=== PATIENT | female | born 1995 | race American Indian/Alaskan Native ===

== ENCOUNTER 2018-01-20 11:31 | Emergency (ER) | payer MEDICAID, OTHER ==
--- NOTE | 2018-01-20 12:43 | C.PDOC ---
History Of Present Illness 22 y/o female presents to the ER complaining of left upper and lower back tooth pain which has been present since last night. Patient states that she was working overnight when she started feeling the pain. Patient reports that she took Ibuprofen PO and she used Orajel. Patient denies having fever, chills, and headache. Time Seen by Provider: 01/20/18 11:47 Chief Complaint (Nursing): Dental Pain History Per: Patient History/Exam Limitations: no limitations Onset/Duration Of Symptoms: Days Current Symptoms Are (Timing): Still Present Severity: Moderate Past Medical History Reviewed: Historical Data, Nursing Documentation, Vital Signs Vital Signs: Last Vital Signs Temp 98.4 F 01/20/18 13:21 Pulse 72 01/20/18 13:34 Resp 18 01/20/18 13:34 BP 123/86 01/20/18 13:34 Pulse Ox 100 01/20/18 13:47 - Medical History PMH: HTN, Kidney Stones Surgical History: No Surg Hx Family History: States: No Known Family Hx - Social History Hx Tobacco Use: No Hx Alcohol Use: No Hx Substance Use: No - Immunization History Hx Tetanus Toxoid Vaccination: No Hx Influenza Vaccination: Yes Hx Pneumococcal Vaccination: No Review Of Systems Except As Marked, All Systems Reviewed And Found Negative. Constitutional: Negative for: Fever, Chills ENT: Positive for: Mouth Pain Neurological: Negative for: Headache Physical Exam - Physical Exam Appears: Non-toxic, No Acute Distress Skin: Normal Color, Warm Head: Atraumatic, Normacephalic Eye(s): bilateral: Normal Inspection Nose: Normal Oral Mucosa: Moist Teeth: Normal Dentition, No Caries Gingiva: Normal Appearing, No Swelling, No Abscess Neck: Supple Chest: Symmetrical Neurological/Psych: Oriented x3, Normal Speech, Normal Motor, Normal Sensation ED Course And Treatment O2 Sat by Pulse Oximetry: 100 (RA) Pulse Ox Interpretation: Normal Medical Decision Making Medical Decision Making: Plan: -- Motrin PO --Ultram PO --Morphine IM --CT- Head W/O Contrast Disposition Counseled Patient/Family Regarding: Need For Followup, Rx Given - Disposition Referrals: [facility] [Outside] Disposition: HOME/ ROUTINE Disposition Time: 15:24 Condition: STABLE Prescriptions: Ibuprofen [Motrin] 600 mg PO TID #15 tab traMADol/Acetaminophen [Ultracet 37.5/325 mg] 1 tab PO TID PRN #15 tab PRN Reason: pain Instructions: Dental Pain (DC) Forms: [facility] ([place]), General Discharge Instructions, Work Excuse - POA Present On Arrival: None - Clinical Impression Clinical Impression: Tooth ache - Scribe Statement The provider has reviewed the documentation as recorded by the Milkaibe Reynaldo Hilliard Provider Attestation: All medical record entries made by the Scribe were at my direction and personally dictated by me. I have reviewed the chart and agree that the record accurately reflects my personal performance of the history, physical exam, medical decision making, and the department course for this patient. I have also personally directed, reviewed, and agree with the discharge instructions and disposition.
[2018-01-20 13:21] VITALS: TEMP 98.4
[2018-01-20] MEDS ORDERED: Morphine 4 MG/ML VIAL ONE (13:31)
[2018-01-20 13:35] VITALS: RESP 18
--- NOTE | 2018-01-20 15:04 | CT ---
PROCEDURE: CT HEAD WITHOUT CONTRAST. HISTORY: pain to left face COMPARISON: None available. TECHNIQUE: Axial computed tomography images were obtained through the head/brain without intravenous contrast. Radiation dose: Total exam DLP = 608.01 mGy-cm. This CT exam was performed using one or more of the following dose reduction techniques: Automated exposure control, adjustment of the mA and/or kV according to patient size, and/or use of iterative reconstruction technique. FINDINGS: HEMORRHAGE: No acute parenchymal, subarachnoid or extra-axial hemorrhage. BRAIN: No evidence of large acute infarct. No obvious parenchymal nor extra-axial mass or collection seen on this noncontrast study. Ventricular and sulcal size are within range of normal this patient's stated age. VENTRICLES: No obstructive hydrocephalus. CALVARIUM: There are no acute calvarial fractures. PARANASAL SINUSES: Unremarkable as visualized. No significant inflammatory changes. MASTOID AIR CELLS: Unremarkable as visualized. No inflammatory changes. OTHER FINDINGS: None. IMPRESSION: No acute intracranial hemorrhage.
[2018-01-20 15:25] VITALS: BP 112/69; PULSE 64
[2018-01-20 15:26] VITALS: O2SAT 100
== END 2018-01-20 15:37 | disposition home or self-care (01) ==
LOC: C.ER 11:31
DX: K08.89 Other specified disorders of teeth and supporting structures (principal)
CPT/HCPCS: 70450; 96372; 99284; J2270